=== PATIENT | male | born 1950 ===

== ENCOUNTER 2018-11-16 16:53 | Inpatient (IN) | payer OTHER ==
[~2018-11-16] VITALS: Ht 172.7 cm; Wt 70.0 kg
[~2018-11-16 16:53] MED LIST: TERA1CAP3
--- NOTE | 2018-11-16 17:12 | NUR ---
PT WITH C/O "INDIGESTION" THAT OCCURED THIS AFTERNOON, PT STATES HE HAS ACID REFLUX AND TAKE MAALOX FOR THAT, THIS TIME HE TOOK MAALOX IT TOOK LONGER TO SUBSIDE. PT WAS REFERRED TO ER FROM . PT DENIES SOB, V/V, TRAUMA. NO REPORTED CP AT THIS TIME
--- NOTE | 2018-11-16 17:13 | NUR ---
PT TO NIBP, TITLE ONE TEACHER, CONT PULSE OX. AT BEDSIDE
[2018-11-16] MEDS ORDERED: ASPIRIN 81 MG TABLET CHEW ONE (17:36)
[2018-11-16 17:45] LABS: BASOPHILS # (AUTO) 0.05 x10^3/uL (0-0.1); BASOPHILS % (AUTO) 1 % (0-1); EOSINOPHILS # (AUTO) 0.09 x10^3/uL (0-0.4); EOSINOPHILS % (AUTO) 1 % (1-7); LYMPHOCYTES # (AUTO) 2.93 x10^3/uL (1-3.4); LYMPHOCYTES % (AUTO) 28 % (22-44); MD NO; MEAN CORPUSCULAR HEMOGLOBIN 33.2 pg (27.5-34.5); MEAN CORPUSCULAR HGB CONC 33.8 g/dL (33.2-36.2); MEAN CORPUSCULAR VOLUME 98.1 fL (81-97); MEAN PLATELET VOLUME 8.1 fL (7.4-10.4); MONOCYTES # (AUTO) 0.73 x10^3/uL (0.2-0.8); MONOCYTES % (AUTO) 7 % (2-9); NEUTROPHILS # (AUTO) 6.85 x10^3/uL (1.8-6.8); NEUTROPHILS % (AUTO) 64 % (42-75); PLATELET COUNT 208 x10^3/uL (130-400); RED CELL DISTRIBUTION WIDTH 12.7 % (9.4-14.8)
[2018-11-16 17:55] LABS: INTERNATIONAL NORMALIZED RATIO 0.98 (0.93-1.1); PROTHROMBIN TIME 10.3 Seconds (9.6-11.5)
[2018-11-16 17:56] LABS: ALBUMIN 3.9 g/dL (3.4-5.0); ANION GAP 6 mmol/L (5-15); CALCIUM 9.9 mg/dL (8.5-10.1); CHLORIDE 110 mmol/L (98-107); CREATININE 1.26 mg/dL (0.7-1.3)
[2018-11-16] MEDS ORDERED: ASPIRIN 81 MG TABLET CHEW PO ONE (18:00)
[2018-11-16 18:01] LABS: ALKALINE PHOSPHATASE 281 U/L (45-117); BILIRUBIN,TOTAL 3.1 mg/dL (0.2-1.0); TROPONIN I < 0.015 ng/mL (0.000-0.045)
[2018-11-16 18:04] LABS: ALANINE AMINOTRANSFERASE 1122 U/L (12-78)
--- NOTE | 2018-11-16 18:24 | NUR ---
PT AMBULATORY WITH STEADY GAIT TO BATHROOM. PT STATES "I'M HERE FOR INDIGESTION."
[2018-11-16] MEDS ORDERED: SODIUM CHLORIDE FLUSH 10ML SYR IVF ONE (18:30)
[2018-11-16] MEDS ORDERED: LISI-170 PO (18:52)
--- NOTE | 2018-11-16 18:52 | NUR ---
REPORT TO NOC RN
--- NOTE | 2018-11-16 19:04 | NUR ---
PT RESTING ON GURNEY, DENIES PAIN OR NEEDS AT THIS TIME, MONITORS IN PLACE, SIDERAILS UP X2, CALL LIGHT WITHIN REACH
--- NOTE | 2018-11-16 19:25 | NUR ---
ADDITIONAL ORDER RECIEVED FOR ULTRASOUND, AWAITING U/S
--- NOTE | 2018-11-16 19:32 | NUR ---
COLOR CONTROL OPERATOR AT BEDSIDE
--- NOTE | 2018-11-16 19:54 | NUR ---
pt up to rr with steady gait
--- NOTE | 2018-11-16 20:23 | NUR ---
PT RESTING CALMLY, DENIES NEEDS, MONITORS IN PLACE, CALLLIGHT WITHIN REACH. ERP AT BEDSIDE FOR RECHECK
[2018-11-16] MEDS ORDERED: SODIUM CHLORIDE FLUSH 10ML SYR IVF PRN (21:00)
[2018-11-16] MEDS: SODIUM CHLORIDE 0.9% 1,000 ML IV SCH (21:22)
[2018-11-16] MEDS ORDERED: ONDANSETRON 2MG/ML, 2ML IVPush PRN (21:30)
[2018-11-16] MEDS ORDERED: hydrALAzine 20 MG/ML, 1ML IVPush PRN (21:30)
[2018-11-16] MEDS ORDERED: morphine SULFATE 10 MG/ML, 1ML IVPush PRN (21:30)
--- NOTE | 2018-11-16 21:49 | NUR ---
[facility] STATES PT CAN STAY AND BE CARED FOR BY [facility] WITH NO OUT OF NETWORK COST.
[2018-11-16 21:56] LABS: TROPONIN I < 0.015 ng/mL (0.000-0.045)
[2018-11-16] MEDS ORDERED: IBUP-1221 PO (22:45)
[2018-11-16 22:56] VITALS: BP 156/83
[2018-11-16] MEDS ORDERED: TERAZOSIN 1MG CAPSULE PO ONE (23:00)
[2018-11-16] MEDS: IBUPROFEN 200 MG TABLET PO PRN (23:04)
[2018-11-16] MEDS: ZOLPIDEM 5MG TABLET PO PRN (23:08)
[2018-11-16 23:20] VITALS: BP 156/83
[2018-11-17 00:16] VITALS: BP 120/85
[2018-11-17 03:46] LABS: ALBUMIN 3.3 g/dL (3.4-5.0); ANION GAP 5 mmol/L (5-15); CALCIUM 9.3 mg/dL (8.5-10.1); CHLORIDE 112 mmol/L (98-107)
[2018-11-17 03:49] LABS: BASOPHILS # (AUTO) 0.02 x10^3/uL (0-0.1); BASOPHILS % (AUTO) 0 % (0-1); EOSINOPHILS # (AUTO) 0.04 x10^3/uL (0-0.4); EOSINOPHILS % (AUTO) 1 % (1-7); LYMPHOCYTES # (AUTO) 2.08 x10^3/uL (1-3.4); LYMPHOCYTES % (AUTO) 32 % (22-44); MD NO; MEAN CORPUSCULAR HEMOGLOBIN 33.4 pg (27.5-34.5); MEAN CORPUSCULAR HGB CONC 33.8 g/dL (33.2-36.2); MEAN CORPUSCULAR VOLUME 98.8 fL (81-97); MEAN PLATELET VOLUME 8.3 fL (7.4-10.4); MONOCYTES % (AUTO) 8 % (2-9); NEUTROPHILS # (AUTO) 3.84 x10^3/uL (1.8-6.8); NEUTROPHILS % (AUTO) 59 % (42-75); PLATELET COUNT 175 x10^3/uL (130-400); RED BLOOD COUNT 4.05 x10^6/uL (4.38-5.82); RED CELL DISTRIBUTION WIDTH 12.6 % (9.4-14.8)
[2018-11-17 03:53] LABS: ALKALINE PHOSPHATASE 248 U/L (45-117); BILIRUBIN,TOTAL 1.3 mg/dL (0.2-1.0); CHOL/HDL RATIO 2.3; CHOLESTEROL, TOTAL 122 mg/dL (140-239); HDL CHOL % 44 % (26-37); HDL CHOLESTEROL (DIRECT) 54 mg/dL (40-60); LDL CHOLESTEROL,CALCULATED 57 mg/dL (54-169); LDL/HDL RATIO 1.1 (0.5-3.0); TOTAL PROTEIN 6.1 g/dL (6.4-8.2); TRIGLYCERIDES 53 mg/dL (50-200); TROPONIN I < 0.015 ng/mL (0.000-0.045); VLDL CHOLESTEROL 11 mg/dL (0-25)
[2018-11-17 03:54] LABS: ALANINE AMINOTRANSFERASE 1363 U/L (12-78)
[2018-11-17 07:35] VITALS: BP 170/82
[2018-11-17] MEDS: LISINOPRIL 20 MG TABLET PO SCH (08:43)
[2018-11-17] MEDS: SODIUM CHLORIDE 0.9% 1,000 ML IV SCH ×2 (08:43→20:46)
[2018-11-17] MEDS ORDERED: FAMOTIDINE 20 MG/2 ML IVPush SCH (09:00)
[2018-11-17] MEDS: PANTOPRAZOLE 40 MG IV IVPush SCH ×2 (10:36→22:41)
[2018-11-17] MEDS: IBUPROFEN 200 MG TABLET PO PRN (10:36)
[2018-11-17 13:00] VITALS: BP 155/86
[2018-11-17] MEDS: PIPERACILLIN/TAZO/PMX 3.375GM 50 ML IV SCH ×2 (16:29→22:41)
[2018-11-17 19:27] VITALS: BP 155/88
[2018-11-17] MEDS: TERAZOSIN 1MG CAPSULE PO SCH (20:45)
[2018-11-17] MEDS: ZOLPIDEM 5MG TABLET PO PRN (20:48)
[2018-11-18 00:44] VITALS: BP 147/88
[2018-11-18] MEDS: PIPERACILLIN/TAZO/PMX 3.375GM 50 ML IV SCH ×3 (04:54→20:02)
[2018-11-18 05:25] LABS: ALBUMIN 3.7 g/dL (3.4-5.0); ANION GAP 4 mmol/L (5-15); CALCIUM 9.9 mg/dL (8.5-10.1); CHLORIDE 111 mmol/L (98-107)
[2018-11-18 05:31] LABS: ALANINE AMINOTRANSFERASE 993 U/L (12-78); ALKALINE PHOSPHATASE 249 U/L (45-117); CREATININE 1.12 mg/dL (0.7-1.3); TOTAL PROTEIN 6.8 g/dL (6.4-8.2)
[2018-11-18 06:56] VITALS: BP 176/87
[2018-11-18] MEDS ORDERED: PROPOFOL 10 MG/ML, 20ML ONE ×3 (08:46→15:30)
[2018-11-18] MEDS ORDERED: FENTANYL PF 250 MCG/5ML ONE ×2 (08:46→15:27)
[2018-11-18] MEDS ORDERED: GLYCOPYRROLATE 0.2MG/1ML, 5ML ONE ×2 (08:58→15:30)
[2018-11-18] MEDS ORDERED: ROCURONIUM 10 MG/ML,10ML ONE (08:58)
[2018-11-18] MEDS ORDERED: NEOSTIGMINE 1 MG/ML, 10ML ONE ×2 (08:58→15:30)
[2018-11-18] MEDS ORDERED: MORPHINE SULFATE 4 MG/ML, 1ML IVPush PRN (09:00)
[2018-11-18] MEDS ORDERED: OXYcodone 5 MG/5 ML ORAL.SOL UDC PO PRN ×2 (09:00→18:00)
[2018-11-18] MEDS ORDERED: MEPERIDINE/PF 25MG/0.5ML IVPush PRN (09:00)
[2018-11-18] MEDS ORDERED: LABETALOL 5MG/ML, 20ML IV PRN (09:00)
[2018-11-18] MEDS ORDERED: PROMETHAZINE 25 MG/ML, 1ML IM PRN ×3 (09:00→12:30)
[2018-11-18] MEDS ORDERED: FENTANYL PF 100 MCG/2ML IV PRN ×2 (09:00→18:00)
[2018-11-18] MEDS ORDERED: ONDANSETRON ODT 8 MG PO PRN (09:00)
[2018-11-18] MEDS ORDERED: ONDANSETRON 2MG/ML, 2ML IV PRN (09:00)
[2018-11-18] MEDS ORDERED: HYDROmorphone 2 MG/ML, 1ML IVPush PRN ×2 (09:00→18:00)
[2018-11-18] MEDS ORDERED: PROMETHAZINE 12.5 MG SUPP PR PRN (09:00)
[2018-11-18] MEDS ORDERED: PROMETHAZINE 25 MG SUPP PR PRN (09:00)
[2018-11-18] MEDS ORDERED: hydrALAzine 20 MG/ML, 1ML IV PRN (09:00)
[2018-11-18] MEDS ORDERED: PROMETHAZINE 25 MG/ML, 1ML IV PRN ×2 (09:00→18:00)
[2018-11-18] MEDS ORDERED: OMNIPAQUE 350 MG/ML, 50 ML BOTTLE ONE (09:54)
[2018-11-18] MEDS ORDERED: ONDANSETRON 2MG/ML, 2ML ONE ×2 (10:13→16:08)
[2018-11-18] MEDS: PANTOPRAZOLE 40 MG IV IVPush SCH ×2 (10:57→22:15)
[2018-11-18] MEDS: LISINOPRIL 20 MG TABLET PO SCH (10:58)
[2018-11-18] MEDS: SODIUM CHLORIDE 0.9% 1,000 ML IV SCH (10:59)
[2018-11-18 12:07] VITALS: BP 147/75
[2018-11-18] MEDS ORDERED: MIDAZOLAM 1 MG/ML, 2ML ONE (15:27)
[2018-11-18] MEDS ORDERED: ROCURONIUM 10MG/ML,5ML ONE (15:30)
[2018-11-18] MEDS ORDERED: CEFOTETAN PMX 2GM/50ML 50 ML ONE (15:30)
[2018-11-18] MEDS ORDERED: CEFAZOLIN 1,000 MG ONE (15:30)
[2018-11-18] MEDS ORDERED: BUPIVACAINE/EPI 0.5% 1:200K ONE (15:42)
[2018-11-18] MEDS ORDERED: DEXAMETHASONE 4 MG/ML, 1ML ONE ×2 (16:08)
[2018-11-18] MEDS ORDERED: FENTANYL PF 100 MCG/2ML ONE ×3 (16:29→17:41)
[2018-11-18] MEDS ORDERED: BUPIVACAINE/EPI 0.5% 1:200K INFIL ONE (16:44)
[2018-11-18] MEDS ORDERED: KETOROLAC 30 MG/1 ML ONE (16:56)
[2018-11-18] MEDS ORDERED: OXYcodone 5 MG/5 ML ORAL.SOL UDC ONE (17:41)
[2018-11-18] MEDS ORDERED: PROMETHAZINE 25 MG/ML, 1ML ONE (17:52)
[2018-11-18 18:27] VITALS: BP 159/74
[2018-11-18 19:46] VITALS: BP 152/85
[2018-11-18] MEDS: TERAZOSIN 1MG CAPSULE PO SCH (20:30)
[2018-11-18] MEDS: ZOLPIDEM 5MG TABLET PO PRN (22:15)
[2018-11-19 00:18] VITALS: BP 165/91
[2018-11-19] MEDS: PIPERACILLIN/TAZO/PMX 3.375GM 50 ML IV SCH ×2 (01:43→07:50)
[2018-11-19] MEDS: SODIUM CHLORIDE 0.9% 1,000 ML IV SCH (03:18)
[2018-11-19 04:40] VITALS: BP 161/84
[2018-11-19 05:31] LABS: BASOPHILS # (AUTO) 0.02 x10^3/uL (0-0.1); BASOPHILS % (AUTO) 0 % (0-1); EOSINOPHILS # (AUTO) 0.01 x10^3/uL (0-0.4); EOSINOPHILS % (AUTO) 0 % (1-7); LYMPHOCYTES # (AUTO) 1.69 x10^3/uL (1-3.4); LYMPHOCYTES % (AUTO) 16 % (22-44); MD NO; MEAN CORPUSCULAR HEMOGLOBIN 32.6 pg (27.5-34.5); MEAN CORPUSCULAR HGB CONC 33.3 g/dL (33.2-36.2); MEAN CORPUSCULAR VOLUME 97.9 fL (81-97); MEAN PLATELET VOLUME 8.2 fL (7.4-10.4); MONOCYTES # (AUTO) 0.59 x10^3/uL (0.2-0.8); MONOCYTES % (AUTO) 6 % (2-9); NEUTROPHILS # (AUTO) 8.28 x10^3/uL (1.8-6.8); NEUTROPHILS % (AUTO) 78 % (42-75); PLATELET COUNT 189 x10^3/uL (130-400); RED BLOOD COUNT 4.01 x10^6/uL (4.38-5.82); RED CELL DISTRIBUTION WIDTH 12.2 % (9.4-14.8)
[2018-11-19 05:40] LABS: CHLORIDE 109 mmol/L (98-107)
[2018-11-19 05:48] LABS: ALANINE AMINOTRANSFERASE 727 U/L (12-78); ALKALINE PHOSPHATASE 244 U/L (45-117); ANION GAP 6 mmol/L (5-15); BILIRUBIN,TOTAL 0.8 mg/dL (0.2-1.0); CALCIUM 9.6 mg/dL (8.5-10.1); CREATININE 1.43 mg/dL (0.7-1.3); TOTAL PROTEIN 5.8 g/dL (6.4-8.2)
[2018-11-19 06:59] VITALS: BP 136/73
[2018-11-19] MEDS: LISINOPRIL 20 MG TABLET PO SCH (07:50)
[2018-11-19] MEDS ORDERED: TAMSULOSIN 0.4 MG CAP.ER.24H PO SCH (09:00)
[2018-11-19] MEDS: PANTOPRAZOLE 40 MG IV IVPush SCH (09:46)
[2018-11-19 10:50] VITALS: BP 144/78
[2018-11-19] MEDS ORDERED: HYDR-3240 PO (11:08)
[2018-11-19] MEDS ORDERED: DOCU-131 PO (11:08)
[2018-11-19] MEDS ORDERED: TAMS-11 PO (11:09)
[2018-11-19] MEDS ORDERED: ONDA4TAB7 PO (11:09)
== END 2018-11-19 11:35 | disposition home or self-care (01) | DRG 418 ==
LOC: ED 17:54 → EDIP 21:12 → 5SO 22:53 → 4NOR 11-18 18:21 → DCLOUNGE 11-19 11:08
PROVIDERS: ADMIT Family Medicine; ATTEND Family Medicine
PROC: 0DNU4ZZ Release Omentum, Percutaneous Endoscopic Approach (ICD-10-PCS; 2018-11-18)
PROC: BF131ZZ Fluoroscopy of Gallbladder and Bile Ducts using Low Osmolar Contrast (ICD-10-PCS; 2018-11-18)
PROC: 0FC98ZZ Extirpation of Matter from Common Bile Duct, Via Natural or Artificial Opening Endoscopic (ICD-10-PCS; 2018-11-18)
PROC: 0FT44ZZ Resection of Gallbladder, Percutaneous Endoscopic Approach (ICD-10-PCS; principal; 2018-11-18 10:00)
DX: K80.71 Calculus of gallbladder and bile duct without cholecystitis with obstruction (principal); E44.1 Mild protein-calorie malnutrition; K29.70 Gastritis, unspecified, without bleeding; K66.0 Peritoneal adhesions (postprocedural) (postinfection); R07.89 Other chest pain; K83.8 Other specified diseases of biliary tract; K20.9 Esophagitis, unspecified; I10 Essential (primary) hypertension; K75.9 Inflammatory liver disease, unspecified; Z90.49 Acquired absence of other specified parts of digestive tract
CPT/HCPCS: 36415; 71045; 74181; 74328; 76700; 80053; 80061; 80074; 83735; 83880; 84484; 85025; 85610; 85730; 88304; 93005; 99285; G0378; J0690; J1100; J1885; J2250; J2405; J2543; J2550; J2704; J2710; J3010; Q9967; C9113; J2270; J3490; J7030